=== PATIENT | male | born 1990 | race Caucasian/White ===

== ENCOUNTER 2016-12-13 18:27 | Emergency (ER) | payer SELFPAY ==
[~2016-12-13] VITALS: Ht 182.9 cm; Wt 77.1 kg
[2016-12-13 18:27] VITALS: BP 132/73
[2016-12-13] MEDS ORDERED: NAPROXEN 250 MG TABLET PO STA (18:39)
[2016-12-13] MEDS ORDERED: NAPROXEN 250 MG TABLET ONE (18:45)
--- NOTE | 2016-12-13 19:10 | NUR ---
pt laying in bed, a/o x 4, swelling to R ankle, distal sensation intact, c/o 8/10 pain, waiting on XR results, updated pt on plan of care
== END 2016-12-13 20:47 | disposition home or self-care (01) ==
LOC: ER 18:37
DX: S93.401A Sprain of unspecified ligament of right ankle, initial encounter (principal); X58.XXXA Exposure to other specified factors, initial encounter; Y93.66 Activity, soccer; Y92.89 Other specified places as the place of occurrence of the external cause; Y99.9 Unspecified external cause status
CPT/HCPCS: 29515; 73610; 73630; 99284; A4606; Z7610